=== PATIENT | male | born 1995 | race Caucasian/White ===

== ENCOUNTER 2023-10-26 16:03 | Emergency (ER) | payer MEDICAID, SELFPAY ==
[2023-10-26 16:04] VITALS: BP 114/81; PULSE 93; RESP 16; TEMP 36.3; O2SAT 98; BMI 24.5
== END 2023-10-26 21:47 | disposition left against medical advice (07) ==
LOC: ED 21:54
DX: Z53.21 Procedure and treatment not carried out due to patient leaving prior to being seen by health care provider (principal)